=== PATIENT | male | born 1990 | race Two or more races ===

== ENCOUNTER 2017-06-02 12:19 | Emergency (ER) | payer OTHER ==
[~2017-06-02] VITALS: Ht 162.6 cm; Wt 561.5 kg
[~2017-06-02 12:19] MED LIST: CEPH250A PO; CEPH250SUA PO; CEPH500 PO; CODACEE120 PO; SULTRIDS PO; SULTRISS PO
[2017-06-02] MEDS ORDERED: Permethrin60 GM TOP (12:38)
[2017-06-02] MEDS ORDERED: Vistaril25 MG PO (12:38)
== END 2017-06-02 12:48 | disposition home or self-care (01) ==
LOC: ER 12:19
DX: B86 Scabies (principal)
CPT/HCPCS: 99283

== ENCOUNTER 2017-10-10 00:09 | Emergency (ER) | payer OTHER ==
[~2017-10-10] VITALS: Ht 162.6 cm; Wt 68.0 kg
[~2017-10-10 00:09] MED LIST changes: +Permethrin60 GM TOP; +Vistaril25 MG PO
[2017-10-10] MEDS ORDERED: FAMO20 PO (00:59)
[2017-10-10] MEDS ORDERED: BENADRYL25 MG PO (00:59)
[2017-10-10] MEDS ORDERED: EPIPEN 2-P0.3 MG/0.3 IM (00:59)
== END 2017-10-10 01:47 | disposition home or self-care (01) ==
LOC: ER 00:09
DX: T63.441A Toxic effect of venom of bees, accidental (unintentional), initial encounter (principal); Z79.899 Other long term (current) drug therapy
CPT/HCPCS: 96361; 96374; 96375; 99283-25; J1100; J1200; J3490; J7030

== ENCOUNTER 2019-12-13 00:19 | Emergency (ER) | payer OTHER ==
[~2019-12-13] VITALS: Ht 162.6 cm; Wt 59.0 kg
[~2019-12-13 00:19] MED LIST changes: +BENADRYL25 MG PO; +EPIPEN 2-P0.3 MG/0.3 IM; +FAMO20 PO
[2019-12-13] MEDS ORDERED: Vibramycin100 MG PO (02:07)
== END 2019-12-13 02:13 | disposition home or self-care (01) ==
LOC: ER 00:19
DX: L02.413 Cutaneous abscess of right upper limb (principal); Z87.891 Personal history of nicotine dependence
CPT/HCPCS: 99283

== ENCOUNTER 2020-01-04 23:45 | Emergency (ER) | payer OTHER ==
[~2020-01-04] VITALS: Ht 162.6 cm; Wt 59.9 kg
[~2020-01-04 23:45] MED LIST changes: +Vibramycin100 MG PO
[2020-01-05] MEDS ORDERED: Cleocin HCl300 MG PO (01:23)
== END 2020-01-05 01:43 | disposition home or self-care (01) ==
LOC: ER 23:45
DX: L02.512 Cutaneous abscess of left hand (principal); L03.114 Cellulitis of left upper limb; Z23 Encounter for immunization; Z87.891 Personal history of nicotine dependence
CPT/HCPCS: 12001; 73130; 90471; 90714; 96365; 96375; 99283-25; J1885

== ENCOUNTER 2021-10-17 16:30 | Emergency (ER) | payer OTHER ==
[~2021-10-17] VITALS: Ht 162.6 cm; Wt 65.8 kg
[~2021-10-17 16:30] MED LIST changes: +Cleocin HCl300 MG PO
== END 2021-10-17 19:26 | disposition home or self-care (01) ==
LOC: ER 16:30
DX: F12.929 Cannabis use, unspecified with intoxication, unspecified (principal); F41.9 Anxiety disorder, unspecified; F17.200 Nicotine dependence, unspecified, uncomplicated; Z91.018 Allergy to other foods
CPT/HCPCS: 99285